=== PATIENT | male | born 1930 | race Caucasian/White ===

== ENCOUNTER 2018-04-04 20:30 | Inpatient (IN) | payer MEDICARE, BC ==
[~2018-04-04] VITALS: Ht 172.7 cm; Wt 65.4 kg
--- NOTE | ~2018-04-04 | PN ---
PATIENT:ELMA PINON MEDICAL RECORD: [id number] LOCATION:DORENE Murphy112 ADMISSION DATE: 04/04/18 PROGRESS NOTE DATE OF SERVICE: 04/22/2018 SUBJECTIVE: The patient's case was discussed with staff. He has no new complaint. OBJECTIVE: The patient denies intent to harm himself or others. He generally tolerates his medicines well. Eye contact is fair. ASSESSMENT: No change in diagnoses. PLAN: If this level of improvement is maintained, I anticipate the patient can be transitioned out of the hospital soon. TRANSINT:[id number] Voice Confirmation ID: [id number] DOCUMENT ID: [id number] SHIREEN RALPH MD at 1416 CC: [id number] DICTATION DATE: 04/22/18 1624 CHLORINE OPERATOR: 04/22/18 1631 ADM IN [facility] [address] [place] [address]
--- NOTE | ~2018-04-04 | PN ---
PATIENT:ELMA PINON MEDICAL RECORD: [id number] LOCATION:DORENE Murphy112 ADMISSION DATE: 04/04/18 PROGRESS NOTE DATE OF SERVICE: 04/16/2018 SUBJECTIVE: The patient's case was discussed with staff. He has no new complaint. OBJECTIVE: The patient denies intent to harm himself or others. He generally tolerates his medicines well. He is very poorly oriented with very limited insight about his situation. Eye contact is poor. ASSESSMENT: No change in diagnoses. PLAN: Brief supportive and educational interventions were made. Long-term prognosis is guarded. TRANSINT:[id number] Voice Confirmation ID: [id number] DOCUMENT ID: [id number] SHIREEN RALPH MD at 1449 CC: [id number] DICTATION DATE: 04/16/18 1522 PRECAST CONCRETE PRODUCTS INSTALLER: 04/16/18 1605 ADM IN [facility] [address] [place] [id number]
--- NOTE | ~2018-04-04 | PN ---
PATIENT:ELMA PINON MEDICAL RECORD: [id number] LOCATION:SUDHIRLakesha Murphy112 ADMISSION DATE: 04/04/18 PROGRESS NOTE DATE OF SERVICE: 04/09/2018 SUBJECTIVE: The patient's case was discussed with staff. He has no new complaint. OBJECTIVE: The patient is in good behavioral control with limited insight about his condition. He does tolerate his medicines well. At times, he has been agitated, but it is intermittent. Unfortunately, even though the behaviors are widely spaced throughout the day they are intense enough to make him unmanageable in an ordinary half-way situation. ASSESSMENT: No change in diagnoses. PLAN: Supportive and educational interventions were made. Long-term prognosis is guarded. TRANSINT:[id number] Voice Confirmation ID: [id number] DOCUMENT ID: [id number] SHIREEN RALPH MD at 1628 CC: [id number] DICTATION DATE: 04/09/18 1510 PRIMARY SPECIAL EDUCATOR: 04/09/18 1518 ADM IN [place] [id number] [place] [address]
--- NOTE | ~2018-04-04 | PN ---
PATIENT:ELMA PINON MEDICAL RECORD: [id number] LOCATION:DORENE Murphy112 ADMISSION DATE: 04/04/18 PROGRESS NOTE DATE OF SERVICE: 04/06/2018 SUBJECTIVE: The patient's case was discussed with staff. He has no new complaint. OBJECTIVE: The patient denies intent to harm himself or others. He is in good behavioral control. ASSESSMENT: No change in diagnoses. PLAN: Supportive and educational interventions were made. The patient's long-term prognosis is guarded. I have discussed the situation with the nursing staff, and I am going to ask if the senior accounting specialist or urologist would consider taking the Vazquez catheter out even if he has to be catheterized 3 or 4 times a day. I think that this would be preferable since the low level of bacteria present with the catheter is likely a contributing factor to his agitation. Of course, I understand these situations require weighing relative risks and benefits of a number of factors, but if at all possible I would like to try him without the catheter. TRANSINT:[id number] Voice Confirmation ID: [id number] DOCUMENT ID: [id number] SHIREEN RALPH MD at 1210 CC: [id number] DICTATION DATE: 04/06/18 1245 ENGINEERING PROFESSOR: 04/06/18 1304 ADM IN [place] [address] [place] [address]
--- NOTE | ~2018-04-04 | PN ---
PATIENT:ELMA PINON MEDICAL RECORD: [id number] LOCATION:SUDHIRLakesha Murphy112 ADMISSION DATE: 04/04/18 PROGRESS NOTE DATE OF SERVICE: 04/17/2018 SUBJECTIVE: The patient's case was discussed with staff. He has no new complaint. OBJECTIVE: The patient is in good behavioral control with limited insight about his condition. He does tolerate his medicines well. ASSESSMENT: No change in diagnoses. PLAN: The patient did receive p.r.n. medication for some agitation last night. He has no recollection of these events. He still is not eating adequately, but is being given Megace to stimulate his appetite. The current dose of Trilafon he is taking will be increased slightly. TRANSINT:[id number] Voice Confirmation ID: [id number] DOCUMENT ID: [id number] SHIREEN RALPH MD at 1407 CC: [id number] DICTATION DATE: 04/17/18 1518 ASSISTANT HVAC MECHANIC: 04/17/18 1536 ADM IN [place] [id number] [place] [id number]
--- NOTE | ~2018-04-04 | PN ---
PATIENT:ELMA PINON MEDICAL RECORD: [id number] LOCATION:DORENE Katherine112 ADMISSION DATE: 04/04/18 PROGRESS NOTE DATE OF SERVICE: 04/12/2018 SUBJECTIVE: The patient's case was discussed with staff. He has no new complaint. OBJECTIVE: The patient is in good behavioral control with limited insight about his condition. He does tolerate his medicines well. He has been somewhat angry and irritable, but it has not risen to the level of open agitation. I think he is definitely better, but the improvement in his behaviors may be a little deceptive since he is in a very tightly staffed unit where all of his needs are constantly being attended to and he can regularly be redirected. The same level of improvement back in the half-way would probably result in ongoing disruptive behaviors. TRANSINT:[id number] Voice Confirmation ID: [id number] DOCUMENT ID: [id number] SHIREEN RALPH MD at 1053 CC: [id number] DICTATION DATE: 04/12/18 1336 MULTISKILL OPERATOR: 04/12/18 1341 ADM IN [facility] [address] [place] [id number]
--- NOTE | ~2018-04-04 | PN ---
PATIENT:ELMA PINON MEDICAL RECORD: [id number] LOCATION:DORENE Murphy112 ADMISSION DATE: 04/04/18 PROGRESS NOTE DATE OF SERVICE: 04/14/2018 SUBJECTIVE: The patient's case was discussed with staff. He has no new complaint. OBJECTIVE: The patient is in good behavioral control with limited insight about his condition. He has not been aggressive today. ASSESSMENT: No change in diagnoses. PLAN: Current medicines and therapies have been reviewed and both will be maintained. His long-term prognosis is guarded. TRANSINT:[id number] Voice Confirmation ID: [id number] DOCUMENT ID: [id number] SHIREEN RALPH MD at 1319 CC: [id number] DICTATION DATE: 04/14/18 1024 DIRECTOR OF LEARNING: 04/14/18 1145 ADM IN [place] [address] [place] [address]
--- NOTE | ~2018-04-04 | PN ---
PATIENT:ELMA PINON MEDICAL RECORD: [id number] LOCATION:DORENE Izaguirre ADMISSION DATE: 04/04/18 PROGRESS NOTE DATE OF SERVICE: 04/19/2018 SUBJECTIVE: The patient's case was discussed with staff. He has no new complaint. OBJECTIVE: VITAL SIGNS: He has not been seen by the urologist, but I am not sure it is necessary. He is passing urine and bladder scans are showing little or in the most recent case no residual. He does have to wear a diaper, but this is much preferable to having a Vazquez catheter. ASSESSMENT: No change in diagnoses. PLAN: The patient is confused, but he is actually better since he pulled out his own catheter and there is no further bleeding associated with it. TRANSINT:[id number] Voice Confirmation ID: [id number] DOCUMENT ID: [id number] SHIREEN RALPH MD at 1226 CC: [id number] DICTATION DATE: 04/20/18 1254 FACILITIES OFFICER: 04/20/18 1302 ADM IN [place] [id number] [place] [address]
--- NOTE | ~2018-04-04 | PN ---
PATIENT:ELMA PINON MEDICAL RECORD: [id number] LOCATION:DORENE CalderónWilver112 ADMISSION DATE: 04/04/18 PROGRESS NOTE DATE OF SERVICE: 04/15/2018 SUBJECTIVE: The patient's case was discussed with staff. He has no new complaint. OBJECTIVE: The patient denies intent to harm himself or others. He generally tolerates his medicines well. ASSESSMENT: No change in diagnoses. PLAN: Brief supportive and educational interventions were made. The patient's agitation is significant. I think it improved because of the p.r.n. medication he received last night. Unfortunately, he is now refusing his scheduled medicines for reasons that are unclear to me. TRANSINT:[id number] Voice Confirmation ID: [id number] DOCUMENT ID: [id number] SHIREEN RALPH MD at 1440 CC: [id number] DICTATION DATE: 04/15/18 1413 SPECIAL TESTER: 04/15/18 1422 ADM IN [place] [id number] [place] [address]
--- NOTE | ~2018-04-04 | PN ---
PATIENT:ELMA PINON MEDICAL RECORD: [id number] LOCATION:StephaneWilverMELINDA Murphy112 ADMISSION DATE: 04/04/18 PROGRESS NOTE DATE OF SERVICE: 04/11/2018 SUBJECTIVE: The patient's case was discussed with staff. He has no new complaint. OBJECTIVE: The patient denies intent to harm himself or others. He generally tolerates his medicines well. His long-term prognosis is guarded. PLAN: Brief supportive and educational interventions were made. TRANSINT:[id number] Voice Confirmation ID: [id number] DOCUMENT ID: [id number] SHIREEN RALPH MD at 1324 CC: [id number] DICTATION DATE: 04/11/[address] STENOGRAPHER: 04/11/18 1413 ADM IN [place] [id number] [place] [id number]
--- NOTE | ~2018-04-04 | PN ---
PATIENT:ELMA PINON MEDICAL RECORD: [id number] LOCATION:DORENE Murphy112 ADMISSION DATE: 04/04/18 PROGRESS NOTE DATE OF SERVICE: 04/19/2018 SUBJECTIVE: The patient's case was discussed with staff. He has no new complaint. OBJECTIVE: The patient pulled his Vazquez catheter out yesterday. The urologist has not been able to get here to see him yet. The patient actually looks much more cognitive and intact. He is producing urine. I do not know if he is retaining urine. The staff attempted to do an ultrasound of his bladder to look for retention, but he would not let them do it, he was confused and combative. Nevertheless, he clearly is better and if he can be maintained without the Vazquez catheter that would be a big step in improving his behaviors. TRANSINT:[id number] Voice Confirmation ID: [id number] DOCUMENT ID: [id number] SHIREEN RALPH MD at 1234 CC: [id number] DICTATION DATE: 04/19/18 1438 ENTRY LEVEL SOFTWARE ENGINEER: 04/19/18 1459 ADM IN [facility] [address] [place] [id number]
--- NOTE | ~2018-04-04 | PN ---
PATIENT:ELMA PINON MEDICAL RECORD: [id number] LOCATION:DORENE Izaguirre ADMISSION DATE: 04/04/18 PROGRESS NOTE DATE OF SERVICE: 04/18/2018 SUBJECTIVE: The patient's case was discussed with staff. He has no new complaint. OBJECTIVE: The patient is severely impaired cognitively. Unfortunately, he became agitated last night and pulled out his Vazquez catheter inflated. There was a great deal of bleeding, but that has stopped. He has not voided any urine and a scan of his bladder showed a residual of about 150 cc few hours ago. The patient has no explanation for what he did. He is very confused. ASSESSMENT: No change in diagnoses. PLAN: The patient will be maintained on current medicines. The urologist is going to come see him today I hope. I do not know what his plan will be. If there is anyway possible to manage him without the Vazquez catheter, that would be preferable since it is clearly worsening his confusion and he has already pulled it out once. TRANSINT:[id number] Voice Confirmation ID: [id number] DOCUMENT ID: [id number] SHIREEN RALPH MD at 1341 CC: [id number] DICTATION DATE: 04/18/18 1518 STRICKLER ATTENDANT: 04/18/18 1539 ADM IN [place] [id number] [place] [address]
--- NOTE | ~2018-04-04 | PN ---
PATIENT:ELMA PINON MEDICAL RECORD: [id number] LOCATION:SUDHIRLakesha Murphy112 ADMISSION DATE: 04/04/18 PROGRESS NOTE DATE OF SERVICE: 04/07/2018 SUBJECTIVE: The patient's case was discussed with staff. He has no new complaint. OBJECTIVE: The patient was fairly agitated last night. He has limited insight about his condition. He does tolerate his medicines well. ASSESSMENT: No change in diagnoses. PLAN: The patient will be maintained on current medicines. His long-term prognosis is guarded. TRANSINT:[id number] Voice Confirmation ID: [id number] DOCUMENT ID: [id number] SHIREEN RALPH MD at 1408 CC: [id number] DICTATION DATE: 04/07/18 1223 LABORER HOISTING: 04/07/18 1234 ADM IN [place] [id number] [place] [address]
--- NOTE | ~2018-04-04 | PN ---
PATIENT:ELMA PINON MEDICAL RECORD: [id number] LOCATION:SUDHIRLakesha Murphy112 ADMISSION DATE: 04/04/18 PROGRESS NOTE DATE OF SERVICE: 04/24/2018 SUBJECTIVE: The patient's case was discussed with staff. He has no new complaint. OBJECTIVE: The patient is in good behavioral control with limited insight about his condition. He does tolerate his medicines well. Eye contact is fair. ASSESSMENT: No change in diagnoses. PLAN: Current medicines and therapies have been reviewed and will be maintained. Long-term prognosis is guarded. I anticipate he can be transitioned out of the hospital later today. TRANSINT:[id number] Voice Confirmation ID: [id number] DOCUMENT ID: [id number] SHIREEN RALPH MD at 1340 CC: [id number] DICTATION DATE: 04/24/18 1445 LAMP ASSEMBLER: 04/24/18 1544 DIS IN 04/24/18 [facility] [address] [place] [address]
--- NOTE | ~2018-04-04 | PSY ---
PATIENT NAME:ELMA PINON MEDICAL RECORD: [id number] : 32 LOCATION:DORENE Izaguirre9 ADMISSION DATE: 04/04/18 ACCOUNT: [id number] PSYCHIATRIC EVALUATION DATE OF EVALUATION: 04/05/18 PSYCHIATRIC EVALUATION IDENTIFYING DATA: The patient is 88 years old and he is admitted to the hospital on a voluntary basis. CHIEF COMPLAINT: Aggression. HISTORY OF PRESENT ILLNESS: The patient lives in a care home in [place]. Apparently, he has become aggressive with the staff there acutely. He does not recall the incident, but apparently it was sufficient such that they felt he was a potential danger and they have referred him to us for evaluation. The patient himself is clearly demented severely and lacks insight about his situation. PAST MEDICAL HISTORY: Significant for pacemaker-defibrillator, right nephrectomy secondary to cancer, hernia repair and hemorrhoidectomy, and cataract surgery. PAST PSYCHIATRIC HISTORY: Significant for an established diagnosis of dementia. I do not have details about how, where, or when the diagnosis was made. FAMILY HISTORY: Denied by the patient, but he is unreliable. ALLERGIES: PENICILLIN. CURRENT MEDICATIONS: Include Lexapro, aspirin, Flomax, Isordil, Mobic, multivitamin, Zocor, Coreg, Macrobid, Flexeril, and Ultram. SOCIAL HISTORY: The patient is . He lives in a care home and has adult children who are involved with his care. He apparently has no history of drug or alcohol abuse. His level of social and occupational functioning is unknown. MENTAL STATUS EXAMINATION: The patient is awake; alert; and oriented to person, place, and somewhat to time and situation. His mood is flat. His affect is constricted. Thought processes are circumstantial. Memory, concentration, and abstraction abilities are moderately impaired. He denies any active intent to harm himself or others as well as any overt psychotic symptoms. ASSETS: Supportive family members. LIABILITIES: Limited insight. DIAGNOSTIC IMPRESSION: AXIS I: Senile dementia of the Alzheimer's type with behavioral disturbances. AXIS II: None. AXIS III: Gastroesophageal reflux disease, benign prostatic hypertrophy, anemia, hyperlipidemia, cardiac arrhythmia, osteoarthritis, chronic kidney disease, hypertension, coronary artery disease, urinary tract infection. IV: Moderate stressors. AXIS V: Global assessment of functioning is 30. PLAN: At this time, the patient is admitted to the hospital for a comprehensive medical, psychological, and social evaluation. He will be treated with both mood stabilizing and memory enhancing medications. His long-term prognosis is guarded. TRANSINT:[id number] Voice Confirmation ID: [id number] DOCUMENT ID: [id number] SHIREEN RALPH MD at 1213 CC: [id number] DICTATION DATE: 04/05/18 1518 PUBLIC HOUSING INTERVIEWER: 04/05/18 1532 ADM IN [place] [id number] [place] [id number]
--- NOTE | ~2018-04-04 | PN ---
PATIENT:ELMA PINON MEDICAL RECORD: [id number] LOCATION:KatherineMELINDA Murphy112 ADMISSION DATE: 04/04/18 PROGRESS NOTE DATE OF SERVICE: 04/08/2018 SUBJECTIVE: The patient's case was discussed with staff. He has no new complaint. OBJECTIVE: The patient is not eating well. He is sleeping well, but his oral intake chcf is inconsistent with survival. He has been encouraged to eat. He is so confused that he cannot remember the encouragement that he receives. I am going to start him on Megace for appetite stimulation. With regard to his behavior, he is certainly better. I would anticipate he could be transitioned out of the hospital soon if this level of improvement is maintained. TRANSINT:[id number] Voice Confirmation ID: [id number] DOCUMENT ID: [id number] SHIREEN RALPH MD at 1132 CC: [id number] DICTATION DATE: 04/08/18 1448 DENTIST/OWNER: 04/08/18 1539 ADM IN [facility] [address] [place] [id number]
--- NOTE | ~2018-04-04 | PN ---
PATIENT:ELMA PINON MEDICAL RECORD: [id number] LOCATION:DORENE CalderónWilver112 ADMISSION DATE: 04/04/18 PROGRESS NOTE DATE OF SERVICE: 04/23/2018 SUBJECTIVE: The patient's case was discussed with staff. He has no new complaint. OBJECTIVE: The patient is in good behavioral control with limited insight about his condition. He does tolerate his medicines well. ASSESSMENT: No change in diagnoses. PLAN: Current medicines and therapies have been reviewed. I think the patient has reached or is close to his maximum hospital benefit and I plan to discharge him tomorrow if this level of improvement is maintained. TRANSINT:[id number] Voice Confirmation ID: [id number] DOCUMENT ID: [id number] SHIREEN RALPH MD at 1419 CC: [id number] DICTATION DATE: 04/23/18 1445 UPHOLSTERER HELPER: 04/23/18 1550 ADM IN [place] [id number] [place] [id number]
--- NOTE | ~2018-04-04 | DS ---
PATIENT:ELMA PINON :32 MEDICAL RECORD: [id number] DISCHARGE SUMMARY ADMISSION DATE: 04/04/18 DISCHARGE DATE: 04/24/18 IDENTIFYING DATA: The patient is 88 years old and he was admitted to the hospital on a voluntary basis because of aggression. The patient lives in a half-way in [place] and he apparently became aggressive with staff there. He does not recall the incident, but it was sufficiently disruptive that they felt he was not safe there and referred him for admission. HOSPITAL COURSE: The patient was admitted to the hospital and fully evaluated from both a medical, psychological, and social standpoint. He was treated with both mood stabilizing and memory enhancing medications. His long-term prognosis was deemed guarded. DISCHARGE DIAGNOSES: AXIS I: Senile dementia of the Alzheimer's type with behavioral disturbances. AXIS II: None. AXIS III: Gastroesophageal reflux disease, benign prostatic hypertrophy, anemia, hyperlipidemia, cardiac arrhythmia, osteoarthritis, chronic kidney disease, hypertension, coronary artery disease, and urinary tract infection. AXIS IV: Moderate stressors. AXIS V: Global assessment of functioning is 35. PLAN: At the time of discharge, the patient was in good behavioral control. He no longer had a Vazquez catheter, which greatly improved his behavior and he was producing urine on his own and voiding regularly with no residual bladder retention. Followup is to be with his primary care physician. He had no evidence of acute or direct dangerousness. TRANSINT:[id number] Voice Confirmation ID: [id number] DOCUMENT ID: [id number] SHIREEN RALPH MD at 1151 CC: [id number] DICTATION DATE: 04/26/18 1411 COOK BOX FILLER: 04/26/18 1423 DIS IN 04/24/18 [facility] [address] [place] [address]
--- NOTE | ~2018-04-04 | PN ---
PATIENT:ELMA PINON MEDICAL RECORD: [id number] LOCATION:DORENE Murphy112 ADMISSION DATE: 04/04/18 PROGRESS NOTE DATE OF SERVICE: 04/21/2018 SUBJECTIVE: The patient's case was discussed with staff. He has no new complaint. OBJECTIVE: The patient is in good behavioral control with limited insight about his condition. He does tolerate his medicines well. ASSESSMENT: No change in diagnoses. PLAN: The patient actually was aggressive earlier this morning and did require some p.r.n. medication. I am not sure if this is an isolated event, but he certainly calm now and I have reviewed his medicines and I am not going to make an adjustment based on this one behavior. On the whole, I think he is much better since the Vazquez catheter has been removed. TRANSINT:[id number] Voice Confirmation ID: [id number] DOCUMENT ID: [id number] SHIREEN RALPH MD at 1351 CC: [id number] DICTATION DATE: 04/21/18 1251 GRAPE PRUNER: 04/21/182011 ADM IN [facility] [address] [place] [address]
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
--- NOTE | ~2018-04-04 | PN ---
PATIENT:ELMA PINON MEDICAL RECORD: [id number] LOCATION:DORENE Izaguirre ADMISSION DATE: 04/04/18 PROGRESS NOTE DATE OF SERVICE: 04/13/2018 SUBJECTIVE: The patient's case was discussed with staff. He has no new complaint. OBJECTIVE: The patient denies intent to harm himself or others. He generally tolerates his medicines well. He is severely impaired cognitively. ASSESSMENT: No change in diagnoses. PLAN: Brief supportive and educational interventions were made. Long-term prognosis is guarded. TRANSINT:[id number] Voice Confirmation ID: [id number] DOCUMENT ID: [id number] SHIREEN RALPH MD at 1002 CC: [id number] DICTATION DATE: 04/13/18 1119 EQUIPMENT OPERATING ENGINEER: 04/13/18 1214 ADM IN [place] [id number] [place] [address]
[2018-04-04] MEDS ORDERED: BAYER CHEWABLE81 MG PO (21:32)
[2018-04-04] MEDS ORDERED: LEXAPRO10 MG PO (21:33)
[2018-04-04] MEDS ORDERED: FLOMAX0.4 MG PO (21:33)
[2018-04-04] MEDS ORDERED: ISOSORBIDE DINI10 MG PO (21:34)
[2018-04-04] MEDS ORDERED: MOBIC7.5 MG PO (21:35)
[2018-04-04] MEDS ORDERED: MULTI-DAY VITAM1 TAB PO (21:35)
[2018-04-04] MEDS ORDERED: OMEPRAZOLE20 M1 PO (21:37)
[2018-04-04] MEDS ORDERED: COREG12.5 MG PO (21:38)
[2018-04-04] MEDS ORDERED: ZOCOR40 MG PO (21:38)
[2018-04-04] MEDS ORDERED: MACROBID100 MG PO (21:39)
[2018-04-04] MEDS ORDERED: HYDRALAZINE HCL25 MG PO (21:40)
[2018-04-04] MEDS ORDERED: CYCLOBENZAPRINE5 MG PO (21:42)
[2018-04-04] MEDS ORDERED: ACETAMINOPHEN325 MG PO (21:43)
[2018-04-04] MEDS ORDERED: ULTRAM50 MG PO (21:44)
[2018-04-05 01:08] VITALS: BP 166/64; BMI 21.3
[2018-04-05 05:48] LABS: BASOPHILS 0.7 % (0-2); EOSINOPHILS 3.7 % (0-7); HEMATOCRIT 32.6 % (42.0-54.0); HEMOGLOBIN 11.1 g/dL (13.5-17.5); IMMATURE GRANULOCYTES 0.1 % (0-5); LYMPHOCYTES 18.6 % (15-50); MCH 30.2 pg (26.0-34.0); MCV 88.6 fL (80.0-100.0); MONOCYTES 7.4 % (2-11); NEUTROPHILS 69.5 % (40-80); PLATELET COUNT 157 10x3/uL (130-400); RBC 3.68 10x6/uL (4.20-6.10); WBC 9.8 10x3/uL (4.8-10.8)
[2018-04-05 06:11] LABS: ALBUMIN 2.9 g/dL (3.4-5.0); ANION GAP 10.3 mmol/L (8-16); BILIRUBIN - TOTAL 0.52 mg/dL (0.2-1.3); CALCIUM 8.1 mg/dL (8.5-10.1); CARBON DIOXIDE 25.6 mmol/L (21.0-32.0); CHOL - HDL RATIO 2.3 ratio (2.3-4.9); CREATININE - SERUM 1.4 mg/dL (0.6-1.3); LDL-HDL RATIO 1.2 ratio (1.5-3.5); POTASSIUM - SERUM 3.9 mmol/L (3.5-5.1); PROTEIN - SERUM 5.9 g/dL (6.4-8.2); THYROID STIMULATING HORMONE 2.59 uIU/mL (0.36-3.74)
[2018-04-05 08:04] LABS: APPEARANCE HAZY (CLEAR); COLOR YELLOW (YELLOW); NITRITE POSITIVE (NEGATIVE); PROTEIN 1+ mg/dL (NEGATIVE); SPECIFIC GRAVITY 1.015 (1.005-1.020)
[2018-04-05 08:05] LABS: BACTERIA MANY /hpf (NONE SEEN); BILIRUBIN NEGATIVE (NEGATIVE); EPITHELIAL CELLS NSEEN /hpf (0-5); GLUCOSE NEGATIVE (NEGATIVE); KETONE NEGATIVE (NEGATIVE); MUCUS >1+ /lpf (NONE SEEN); UROBILINOGEN NORMAL (NORMAL); WHITE CELLS - URINE >50 /hpf (0-5)
[2018-04-05 09:46] VITALS: BMI 21.3
[2018-04-05 09:58] VITALS: BP 177/90
[2018-04-06 08:17] LABS: RAPID PLASMA REAGIN Non Reactive (Non Reactive)
[2018-04-06 08:28] VITALS: BP 174/77
[2018-04-06 20:00] VITALS: BP 162/71
[2018-04-07 03:07] LABS: VITAMIN D 25 HYDROXY 30.5 ng/mL (30.0-100.0)
[2018-04-07 08:10] LABS: FOLATE (FOLIC ACID) - SERUM 10.7 ng/mL (>3.0)
[2018-04-07 09:58] VITALS: BP 193/90
[2018-04-07 20:00] VITALS: BP 181/80
[2018-04-08 07:00] VITALS: BP 178/86
[2018-04-08 07:38] LABS: ANION GAP 10.3 mmol/L (8-16); CALCIUM 8.2 mg/dL (8.5-10.1); CARBON DIOXIDE 27.5 mmol/L (21.0-32.0); CREATININE - SERUM 1.4 mg/dL (0.6-1.3); POTASSIUM - SERUM 3.8 mmol/L (3.5-5.1)
[2018-04-08 19:47] VITALS: BP 148/63
[2018-04-09 08:00] VITALS: BP 154/80
[2018-04-09 10:15] VITALS: BMI 21.2
[2018-04-10 07:37] VITALS: BP 149/56
[2018-04-10 20:25] VITALS: BP 175/5
[2018-04-11 09:14] VITALS: BP 177/78
[2018-04-11 19:41] VITALS: BP 118/73
[2018-04-12 09:08] VITALS: BP 187/76
[2018-04-12 20:00] VITALS: BP 128/35
[2018-04-13 08:00] VITALS: BP 156/76
[2018-04-13 19:22] VITALS: BP 127/63
[2018-04-14 08:00] VITALS: BP 133/79
[2018-04-14 19:25] VITALS: BP 121/65
[2018-04-15 12:11] VITALS: BP 180/73
[2018-04-15 13:06] LABS: BASOPHILS 0.5 % (0-2); EOSINOPHILS 4.2 % (0-7); HEMATOCRIT 38.2 % (42.0-54.0); HEMOGLOBIN 13.5 g/dL (13.5-17.5); IMMATURE GRANULOCYTES 0.3 % (0-5); LYMPHOCYTES 6.8 % (15-50); MCH 31.4 pg (26.0-34.0); MCHC 35.3 g/dL (31.0-37.0); MCV 88.8 fL (80.0-100.0); MEAN PLATELET VOLUME 9.5 fL (7.4-10.4); MONOCYTES 5.9 % (2-11); NEUTROPHILS 82.3 % (40-80); PLATELET COUNT 180 10x3/uL (130-400); RDW 14.1 % (11.5-14.5); WBC 18.2 10x3/uL (4.8-10.8)
[2018-04-15 13:19] LABS: ALBUMIN 3.5 g/dL (3.4-5.0); ANION GAP 10.8 mmol/L (8-16); BILIRUBIN - TOTAL 0.98 mg/dL (0.2-1.3); CALCIUM 9.1 mg/dL (8.5-10.1); CARBON DIOXIDE 26.6 mmol/L (21.0-32.0); CREATININE - SERUM 1.5 mg/dL (0.6-1.3); POTASSIUM - SERUM 4.4 mmol/L (3.5-5.1); PROTEIN - SERUM 7.5 g/dL (6.4-8.2)
[2018-04-15 19:31] VITALS: BP 157/64
[2018-04-16 07:00] VITALS: BP 183/53
[2018-04-16 08:23] LABS: APPEARANCE HAZY (CLEAR); BILIRUBIN NEGATIVE (NEGATIVE); COLOR DK YELLOW (YELLOW); GLUCOSE NEGATIVE (NEGATIVE); KETONE NEGATIVE (NEGATIVE); NITRITE NEGATIVE (NEGATIVE); PROTEIN 1+ mg/dL (NEGATIVE); UROBILINOGEN NORMAL (NORMAL)
[2018-04-16 08:35] LABS: BACTERIA MANY /hpf (NONE SEEN); EPITHELIAL CELLS 0-5 /hpf (0-5); WHITE CELLS - URINE >50 /hpf (0-5); YEAST >1+ WITH HYPHAE /hpf (NONE SEEN)
[2018-04-16 08:36] LABS: CALCIUM OXALATE CRYSTALS OCC /hpf (NONE SEEN)
[2018-04-16 10:33] LABS: BASOPHILS 0.6 % (0-2); HEMATOCRIT 35.9 % (42.0-54.0); HEMOGLOBIN 12.5 g/dL (13.5-17.5); IMMATURE GRANULOCYTES 0.3 % (0-5); LYMPHOCYTES 6.1 % (15-50); MCH 30.8 pg (26.0-34.0); MCHC 34.8 g/dL (31.0-37.0); MCV 88.4 fL (80.0-100.0); MEAN PLATELET VOLUME 9.6 fL (7.4-10.4); MONOCYTES 6.1 % (2-11); NEUTROPHILS 83.9 % (40-80); PLATELET COUNT 162 10x3/uL (130-400); RBC 4.06 10x6/uL (4.20-6.10); RDW 14.1 % (11.5-14.5); WBC 17.8 10x3/uL (4.8-10.8)
[2018-04-16 10:44] LABS: ANION GAP 13.3 mmol/L (8-16); CARBON DIOXIDE 23.3 mmol/L (21.0-32.0); CREATININE - SERUM 1.7 mg/dL (0.6-1.3); POTASSIUM - SERUM 4.6 mmol/L (3.5-5.1)
[2018-04-16 20:46] VITALS: BP 141/65
[2018-04-17 06:29] LABS: BASOPHILS 0.6 % (0-2); EOSINOPHILS 5.2 % (0-7); HEMATOCRIT 33.8 % (42.0-54.0); HEMOGLOBIN 11.8 g/dL (13.5-17.5); IMMATURE GRANULOCYTES 0.2 % (0-5); LYMPHOCYTES 9.6 % (15-50); MCH 30.9 pg (26.0-34.0); MCHC 34.9 g/dL (31.0-37.0); MCV 88.5 fL (80.0-100.0); MEAN PLATELET VOLUME 9.4 fL (7.4-10.4); MONOCYTES 6.6 % (2-11); NEUTROPHILS 77.8 % (40-80); PLATELET COUNT 159 10x3/uL (130-400); RBC 3.82 10x6/uL (4.20-6.10); RDW 14.3 % (11.5-14.5); WBC 16.4 10x3/uL (4.8-10.8)
[2018-04-17 10:28] VITALS: BP 163/63
[2018-04-17 20:27] VITALS: BP 132/57
[2018-04-18 10:09] VITALS: BP 208/84
[2018-04-18 19:38] VITALS: BP 146/56
[2018-04-19 09:12] VITALS: Ht 172.7 cm; Wt 65.4 kg
[2018-04-19 10:41] VITALS: BP 162/75
[2018-04-19 12:56] LABS: EOSINOPHILS 4.7 % (0-7); HEMATOCRIT 35.1 % (42.0-54.0); HEMOGLOBIN 11.9 g/dL (13.5-17.5); IMMATURE GRANULOCYTES 0.3 % (0-5); LYMPHOCYTES 12.4 % (15-50); MCH 30.4 pg (26.0-34.0); MCHC 33.9 g/dL (31.0-37.0); MCV 89.8 fL (80.0-100.0); MEAN PLATELET VOLUME 9.3 fL (7.4-10.4); MONOCYTES 7.3 % (2-11); NEUTROPHILS 74.3 % (40-80); RBC 3.91 10x6/uL (4.20-6.10); RDW 14.2 % (11.5-14.5); WBC 11.7 10x3/uL (4.8-10.8)
[2018-04-19 12:59] LABS: PLATELET COUNT 204 10x3/uL (130-400)
[2018-04-19 20:00] VITALS: BP 147/64
[2018-04-20 10:15] VITALS: BP 187/81
[2018-04-20 20:00] VITALS: BP 122/63
[2018-04-21 11:02] VITALS: BP 170/65
[2018-04-21 19:47] VITALS: BP 129/62
[2018-04-22 07:00] VITALS: BP 157/72
[2018-04-22 19:50] VITALS: BP 145/61
[2018-04-23 10:00] VITALS: BP 135/65; BP 153/105
[2018-04-23] MEDS ORDERED: DIFLUCAN100 MG PO (14:47)
[2018-04-23] MEDS ORDERED: COREG12.5 MG PO (14:47)
[2018-04-23] MEDS ORDERED: NORVASC5 MG PO (14:48)
[2018-04-23] MEDS ORDERED: HYDRALAZINE HCL25 MG PO (14:48)
[2018-04-23] MEDS ORDERED: PERPHENAZINE2 MG PO (14:49)
[2018-04-23] MEDS ORDERED: MOBIC7.5 MG PO (14:49)
[2018-04-23] MEDS ORDERED: MEGACE40 MG PO (14:49)
[2018-04-23] MEDS ORDERED: Senokot-S Tablet PO (14:49)
[2018-04-23] MEDS ORDERED: Xylocaine-MPF 1% IM (14:49)
[2018-04-23] MEDS ORDERED: VITAMIN B-121000 MCG PO (14:50)
[2018-04-23] MEDS ORDERED: NYSTATIN1 PWD TOPICAL (14:50)
[2018-04-23] MEDS ORDERED: LIDODERM 5 %1 PATCH TRANSDERM (14:50)
[2018-04-23] MEDS ORDERED: VITAMIN D31000 UNI2 PO (14:50)
[2018-04-23] MEDS ORDERED: PROSCAR5 MG PO (14:51)
[2018-04-23 19:46] VITALS: BP 96/54
[2018-04-24 08:00] VITALS: BP 159/72
== END 2018-04-24 13:30 | DRG 57 ==
LOC: D.PSYCH 20:30
PROVIDERS: Family Medicine; Psychiatry & Neurology Psychiatry
DX: G30.1 Alzheimer's disease with late onset (principal); F02.81 Dementia in other diseases classified elsewhere, unspecified severity, with behavioral disturbance; N39.0 Urinary tract infection, site not specified; K21.9 Gastro-esophageal reflux disease without esophagitis; N40.1 Benign prostatic hyperplasia with lower urinary tract symptoms; R33.8 Other retention of urine; D64.9 Anemia, unspecified; E78.5 Hyperlipidemia, unspecified; N18.9 Chronic kidney disease, unspecified; M19.90 Unspecified osteoarthritis, unspecified site; I25.10 Atherosclerotic heart disease of native coronary artery without angina pectoris; F32.9 Major depressive disorder, single episode, unspecified; K59.00 Constipation, unspecified; E53.8 Deficiency of other specified B group vitamins; E55.9 Vitamin D deficiency, unspecified; N48.89 Other specified disorders of penis